=== PATIENT | female | born 1985 | race Caucasian/White ===

== ENCOUNTER 2023-11-11 13:07 | Emergency (ER) | payer BC, SELFPAY ==
[2023-11-11 13:09] VITALS: BP 131/82
[2023-11-11] MEDS: DILAUDID 0.5 MG IV (15:02)
--- NOTE | 2023-11-11 15:20 | ED.GENMED ---
History of Present Illness
<Kalpesh Lieberman PA-C - Last Filed: 11/12/23 12:59>
General
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
Source: patient
Time Seen by Provider: 11/11/23 14:19
History of Present Illness
History of Present Illness:
38-year-old female with past medical history of endometriosis, uterine fibroids and dental myosis presenting to the emergency department for evaluation of gradually worsening lower abdominal pain and pressure accompanied with heavier vaginal
bleeding a few days ago (had been in touch with her [facility]NAGER [facility] who prescribed her progesterone and bleeding is since subsided but was still some mild spotting). This has been an ongoing issue for the patient and she is scheduled to have a hysterectomy on
November 19 at [place] where her [facility] is located. Patient was at the ER 2 weeks ago and was diagnosed with a 3 cm left ovarian cyst on ultrasound. Patient concerned cyst may have grown which is why she is having increased pain. She has
attempted multiple medications at home including tramadol, meloxicam, ibuprofen, heating pad and has not had any relief. She denies any fevers or urinary symptoms presently. No other concerns at this time.
Past History
<Kalpesh Lieberman PA-C - Last Filed: 11/12/23 12:59>
Past History
ED Past Medical History: Psychiatric (Anxiety) and Other (Endometriosis)
ED Past Surgical History: and Gynecological (D&C, endometroisis)
Social History
Tobacco: Former smoker
Alcohol: Occasional
Drug: None
Personal:
Living: with family
Employment: Employed
Family History
Family History: Other (Noncontributory)
Review of Systems
<Kalpesh Lieberman PA-C - Last Filed: 11/12/23 12:59>
Review of Systems
All Other Systems: ROS reviewed and negative except as documented in HPI and ROS
Phy Exam
<Kalpesh Lieberman PA-C - Last Filed: 11/12/23 12:59>
Physical Exam
Physical Exam:
GENERAL: Alert , in no apparent distress
EYE: clear conjunctiva b/l
HEAD: NCAT
ENT: o/p clr, mmm.
ABDOMEN: Soft, generally tender but worse within the lower part of the abdomen, no r/g, no cvat
NEUROLOGICAL: Alert and oriented
SKIN: Warm and dry, skin intact.
MUSCULOSKELETAL: No edema, well perfused.
PSYCH: Normal and appropriate interaction.
Scores
<Kalpesh Lieberman PA-C - Last Filed: 11/12/23 12:59>
Heart Failure Risk
Heart Failure Risk Score: Not Applicable
Heart Score for Chest Pain Patients
STEMI patient?: Not applicable
Withdrawal Assessment of Alcohol
Withdrawal Assessment Completed?: Not applicable
Course
<Kalpesh Lieberman PA-C - Last Filed: 11/12/23 12:59>
Orders/Labs/Results
Orders:
Orders
11/11/23 14:38
HYDROmorphone [Dilaudid] 0.5 mg IV NOW STA
Test Result ONCE
US Pelvis Only (non-obstetric) Urgent
Comment:
Reason For Exam: lower abd pain, recent 3cm left ovarian cyst
11/11/23 14:57
Complete Blood Count/With Diff Urgent
Comprehensive Metabolic Panel Urgent
HCG, Serum Qualitative Screen Urgent
Urinalysis Reflex To Culture Urgent
Date Specimen was Collected: 11/11/23
Time Specimen was Collected: 14:42
Urine Microscopic Reflex Cult Urgent
Urine Culture Urgent
DONNIE Source: U
Specimen Description:
Date Specimen was Collected: 11/11/23
Time Specimen was Collected: 14:42
11/11/23 17:59
Oxycodone/Acetaminophen [Percocet 5/325] 1 tablet PO NOW STA
Abnormal Lab Results
11/11/23
14:57
MCH 31.7 H pg
(27.0-31.0)
MPV 11.2 H fL
(7.4-10.4)
Absolute Monos (auto) 0.7 H 10^3/uL
(0.1-0.6)
Monocytes % 10.7 H %
(1.7-9.3)
Ur Occult Blood Reflex 3+ A
(Negative)
Urine Bacteria (Reflex) Moderate A
(Negative)
11/11/23 14:57
11/11/23 14:57
Vital Signs
Initial and Last Documented VS:
Initial Vital Signs
Temp Pulse Resp BP Pulse Ox
98.2 F 60 18 131/82 100
11/11/23 13:09 11/11/23 13:09 11/11/23 13:09 11/11/23 13:09 11/11/23 13:09
Last Documented Vital Signs
Temp Pulse Resp BP Pulse Ox
98.2 F 63 18 123/89 98
11/11/23 13:09 11/11/23 18:00 11/11/23 18:00 11/11/23 18:00 11/11/23 18:00
Jessicalt;Ryne Shah, DO - Last Filed: 11/11/23 19:01>
Orders/Labs/Results
Orders:
Orders
11/11/23 14:38
HYDROmorphone [Dilaudid] 0.5 mg IV NOW STA
Test Result ONCE
US Pelvis Only (non-obstetric) Urgent
Comment:
Reason For Exam: lower abd pain, recent 3cm left ovarian cyst
11/11/23 14:57
Complete Blood Count/With Diff Urgent
Comprehensive Metabolic Panel Urgent
HCG, Serum Qualitative Screen Urgent
Urinalysis Reflex To Culture Urgent
Date Specimen was Collected: 11/11/23
Time Specimen was Collected: 14:42
Urine Microscopic Reflex Cult Urgent
Urine Culture Urgent
DONNIE Source: U
Specimen Description:
Date Specimen was Collected: 11/11/23
Time Specimen was Collected: 14:42
11/11/23 17:59
Oxycodone/Acetaminophen [Percocet 5/325] 1 tablet PO NOW STA
Abnormal Lab Results
11/11/23
14:57
MCH 31.7 H pg
(27.0-31.0)
MPV 11.2 H fL
(7.4-10.4)
Absolute Monos (auto) 0.7 H 10^3/uL
(0.1-0.6)
Monocytes % 10.7 H %
(1.7-9.3)
Ur Occult Blood Reflex 3+ A
(Negative)
Urine Bacteria (Reflex) Moderate A
(Negative)
11/11/23 14:57
11/11/23 14:57
Vital Signs
Initial and Last Documented VS:
Initial Vital Signs
Temp Pulse Resp BP Pulse Ox
98.2 F 60 18 131/82 100
11/11/23 13:09 11/11/23 13:09 11/11/23 13:09 11/11/23 13:09 11/11/23 13:09
Last Documented Vital Signs
Temp Pulse Resp BP Pulse Ox
98.2 F 63 18 123/89 98
11/11/23 13:09 11/11/23 18:00 11/11/23 18:00 11/11/23 18:00 11/11/23 18:00
<Kalpesh Lieberman PA-C - Last Filed: 11/12/23 12:59>
MDM/Problems Addressed
Differential Diagnosis Includes:
Endometriosis, dysmenorrhea, adenomyosis, I have less concern for ovarian torsion given chronicity of symptoms
MDM/Problems Addressed:
38-year-old female presenting to the emergency department to be evaluated for gradually worsening lower abdominal pain that is similar to her endometriosis but seems to be worsening. Currently scheduled to have hysterectomy on November 19. Patient
came to the ER today in hopes to ensure she does not have any worsening of her left ovarian cyst as well as for further pain control. Will order 1 mg Dilaudid for pain control here. Ultrasound ordered. Anticipate as long as ultrasound
unremarkable patient can be discharged home with already arranged follow-up on the .
Chronic conditions affecting care: Other (ovarian cyst/endometriosis)
<Ryne Shah DO - Last Filed: 11/11/23 19:01>
*Radiology
Radiology exam reviewed: radiology read reviewed (pelvic US: nad)
*Pulse Oximetry
Patient hypoxic: no
*Critical Care Note
Total Time (30-74mins, 75-104mins- exclusive of procedures): Not Applicable
<Ryne Shah DO - Last Filed: 11/11/23 19:01>
Patient Management
Social determinants of health affecting care: Living situation
Escalation/DeEscalation of care consider admission/obs:
admit not indicated
<Kalpesh Lieberman PA-C - Last Filed: 11/12/23 12:59>
Update Note
Update Note:
Received call from patient that the [facility] was out of Percocet and was requesting a new prescription be sent to a different pharmacy. I contacted the [facility] on [address] who confirmed that they do not have Percocet in stock but that they were also
concerned with patient[place] that she had a recent tramadol prescription filled on October 30 and a Percocet prescription filled on October 25. I did review patient[place] and the Percocet was written for 10 total tablets on October 25 for 2 to 3
days and the tramadol was filled on October 30 with 20 total plus for 5 days. Patient did note to me yesterday during her visit that tramadol does not work for her and she has not been taking this. I did explain to the patient that I can send a
different prescription for Percocet to another pharmacy that may have it in stock however she may still have the same issue with a pharmacist not willing to fill the medication given these [place] findings. Patient expressed understanding.
Prescription sent to the [facility] in [place].
ED Attending Note
<Kalpesh Lieberman PA-C - Last Filed: 11/12/23 12:59>
-
Portions of this chart may have been created with voice recognition software.� Occasional wrong word or��sound alike� substitutions may have occurred due to the inherent limitations of voice recognition software.
<Ryne Shah DO - Last Filed: 11/11/23 19:01>
ED Attending Note
Patient seen and examined by attending physician: Yes
ED Attending Note:
I reviewed and agree with history and treatment plan by Neftali Lieberman. Pt in no acute distress. Normal pelvic US. Stable for d/c. Pt is upset we are not prescribing more percocet. Narcotic policy has been explained to her. 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 No indication for admission.
Discharge Plan
Departure
Patient Disposition: Home (Routine Discharge)
Patient with high blood pressure during this ER visit?: No
Discharge Problem:
Pelvic pain
Instructions: Endometriosis (DC)
Prescriptions:
New
oxycodone-acetaminophen [Percocet] 5-325 mg Tablet
1 tab PO Q6HPRN PRN (Reason: pain) Qty: 10 0RF
oxycodone-acetaminophen [Percocet] 5-325 mg tablet
1 tab PO Q6HPRN PRN (Reason: pain) Qty: 6 0RF
No Action
citalopram 10 MG tablet
20 mg PO DAILY
ibuprofen 600 mg tablet
600 mg PO Q6H Qty: 20 0RF
Referrals:
PRIVATE,PHYSICIAN [Family Provider] -
Interventions
Interventions:
*Risk Screen - Suicide Last Done: 11/11/23 13:09
*General Assessment Last Done: 11/11/23 13:09
*Neglect/Abuse Screening Last Done: 11/11/23 13:09
ED- Fall Risk Assessment Last Done: 11/11/23 15:40
*Nursing Disposition Last Done: 11/11/23 18:50
ED-Female Genitourinary Assessment Last Done: 11/11/23 15:40
Discharge Date and Time
Discharge Date/Time: 11/11/23 18:50
Print Language: MALDIVIAN
[2023-11-11 15:25] LABS: Urine Albumin Negative (Neg - Trace); Urine Bilirubin Negative (Negative); Urine Character Slightly Cloudy (Clear); Urine Color Yellow; Urine Glucose Negative (Negative); Urine Ketone Negative (Negative); Urine Leukocyte Negative (Negative); Urine Nitrite Negative (Negative); Urine Occult Blood 3+ (Negative); Urine Specific Gravity 1.015 (<1.030); Urine Urobilinogen Negative (Neg - 1+); Urine pH 6.5 (5.0-9.0)
[2023-11-11 15:26] LABS: % Basophils 0.7 % (0-2); % Eosinophils 0.7 % (0-6); % Immature Granulocytes 0.3 % (0-0.5); % Lymphocytes 29.3 % (20.5-51.1); % Monocytes 10.7 % (1.7-9.3); % Neutrophils 58.3 % (42.2-75.2); Absolute Basophils 0.1 10^3/uL (0-0.2); Absolute Eosinophils 0.1 10^3/uL (0-0.7); Absolute Monocytes 0.7 10^3/uL (0.1-0.6); Absolute Neutrophils 4.1 10^3/uL (1.4-6.5); Hematocrit 39.9 % (37.0-47.0); Hemoglobin 13.7 g/dL (12.0-16.0); Mean Corp Hgb Conc. 34.3 g/dL (33.0-37.0); Mean Corpuscular Hgb 31.7 pg (27.0-31.0); Mean Corpuscular Volume 92.4 fL (81.0-99.0); Mean Platelet Volume 11.2 fL (7.4-10.4); Nucleated Red Blood Cells % 0 %; Platelet Count 258 10^3/uL (130-400); Red Blood Cell Count 4.32 10^6/uL (4.20-5.40); Red Cell Dist. Width 12.8 % (11.5-14.5); White Blood Cell Count 6.9 10^3/uL (4.8-10.8)
[2023-11-11 15:35] LABS: Urine Red Blood Cell 0-2 /HPF (0-2)
[2023-11-11 15:36] LABS: HCG, Serum Qualitative Screen Negative; Urine Squamous Cell 26-30 /LPF (Few)
[2023-11-11 15:39] LABS: Urine Bacteria Moderate (Negative)
[2023-11-11 15:41] LABS: ALT (SGPT) 29 U/L (0-35); AST (SGOT) 27 U/L (14-36); Albumin 4.4 g/dl (3.5-5.0); Alkaline Phosphatase 41 U/L (38-126); Blood Urea Nitrogen 14 mg/dl (7-17); Calcium 9.1 mg/dl (8.4-10.2); Carbon Dioxide 28 mmol/L (22-30); Chloride 104 mmol/L (98-107); Glucose 76 mg/dl (70-99); Potassium 4.4 mmol/L (3.5-5.1); Sodium 137 mmol/L (135-145); Total Bilirubin 0.2 mg/dl (0.2-1.3); eGFR > 60.00
[2023-11-11 18:00] VITALS: BP 123/89
[2023-11-11] MEDS: PERCOCET 5/325 1 TABLET PO (18:13)
== END 2023-11-11 18:50 | disposition home or self-care (01) ==
LOC: EMR 13:07
PROVIDERS: Physician Assistant Medical; EMERGENCY PHYSICIAN Emergency Medicine
DX: R10.2 Pelvic and perineal pain (principal); F41.9 Anxiety disorder, unspecified; N80.9 Endometriosis, unspecified; Z87.891 Personal history of nicotine dependence; Z86.018 Personal history of other benign neoplasm
CPT/HCPCS: 99284; 96374; 76856; 80053; 81003; 81015; 84703; 85025; 87086